=== PATIENT | male | born 1955 | race Caucasian/White ===

== ENCOUNTER → 2020-09-11 11:09 | Outpatient (BNVA) | payer OTHER, MEDICAID, SELFPAY | PROVIDERS: PCP Physician Assistant; Visit Provider Urology | DX: N52.9 Male erectile dysfunction, unspecified (principal); Z79.899 Other long term (current) drug therapy | CPT/HCPCS: Q3014 ==

== ENCOUNTER 2020-09-29 12:31 | Outpatient (REF) | payer OTHER, MEDICAID, SELFPAY | END 2020-09-29 12:32 | disposition home or self-care (01) | LOC: HO.LAB 12:31 | PROVIDERS: Visit Provider Internal Medicine | DX: Z20.828 Contact with and (suspected) exposure to other viral communicable diseases (principal) | CPT/HCPCS: C9803; U0003 ==

== ENCOUNTER → 2020-11-03 11:34 | Outpatient (BNVA) | payer OTHER, MEDICAID, SELFPAY | PROVIDERS: PCP Physician Assistant; Visit Provider Physician Assistant | DX: Z76.89 Persons encountering health services in other specified circumstances (principal) | CPT/HCPCS: Q3014 ==

== ENCOUNTER 2020-12-31 09:08 | Day surgery (SDC) | payer OTHER, SELFPAY ==
[2020-12-26 14:47] VITALS: BMI 24.2
--- NOTE | 2020-12-30 10:20 | HO.ANESPROP2 ---
Documented by User: Iris Good 12/30/20 10:23 HPI - Anesthesia Eval Consult details Narrative: 65yo M for Upper Endoscopy and Colonoscopy PMFSH Active Problems Active Problems: All Active Problems (Updated 12/26/20 @ 14:56 by Liss Ralph) Erectile dysfunction (Acute) Insomnia (Acute) GERD (gastroesophageal reflux disease) (Acute) Lumbar spine pain (Acute) Encounter for screening colonoscopy (Acute) Alcohol dependence (Acute) Past Medical History Medical History Arthritis Back pain Elevated cholesterol GERD (gastroesophageal reflux disease) History of alcohol dependence HTN (hypertension) Surgical History Surgical History H/O colonoscopy Hx of umbilical hernia repair Social History Social History Household Members: Spouse Housing: House Alcohol intake: former Year quit: 2019 Smoking Status: Current some day smoker Tobacco Type: Cigarette Cigarettes Per Day: 15 Years Smoked: 20+ Smoked in Last 30 Days: Yes Use of substances other than those prescribed or required for medical reasons: No Have you been hit, kicked, punched, or otherwise hurt by someone within the past year? If so, by whom?: No Advance Directives Information Provided: No Recently lost weight without trying: No Current occupational status: disabled Current occupation: [employer] Allergies Allergy/AdvReac Type Severity Reaction Status Date / Time No Known Allergies Allergy Verified 12/26/20 14:51 Home Medications Medication Instructions Recorded Confirmed Last Taken Type amlodipine 5 mg tablet 5 mg PO DAILY 09/11/20 Unknown History cefadroxil 1 gram tablet 1 g PO DAILY 09/11/20 Unknown History omeprazole 40 mg capsule,delayed 40 mg PO DAILY 09/11/20 Unknown History release ondansetron 4 mg disintegrating 4 mg SUBLINGUAL Q4-6H 09/11/20 Unknown History tablet sildenafil 100 mg tablet 100 mg PO DAILY PRN 09/11/20 12/26/20 Unknown History Exam Exam Date and Time: December 30, 2020 1020 Height,Weight and Vital Signs: Height 5 ft 9 in Weight 74.389 kg Assessment and Plan Assessment Anesthesia Assessment: Chart Reviewed Documented by User: Sangeetha Carrasco 12/31/20 09:51 PMFSH Past Medical History Medical History Arthritis Back pain Elevated cholesterol GERD (gastroesophageal reflux disease) History of alcohol dependence HTN (hypertension) Surgical History Surgical History H/O colonoscopy Hx of umbilical hernia repair Social History Social History Household Members: Spouse Housing: House Alcohol intake: former Year quit: 2019 Smoking Status: Current some day smoker Tobacco Type: Cigarette Cigarettes Per Day: 15 Years Smoked: 20+ Smoked in Last 30 Days: Yes Use of substances other than those prescribed or required for medical reasons: No Have you been hit, kicked, punched, or otherwise hurt by someone within the past year? If so, by whom?: No Advance Directives Information Provided: No Recently lost weight without trying: No Current occupational status: disabled Current occupation: [employer] Allergies Allergy/AdvReac Type Severity Reaction Status Date / Time No Known Allergies Allergy Verified 12/26/20 14:51 Home Medications Medication Instructions Recorded Confirmed Last Taken Type amlodipine 5 mg tablet 5 mg PO DAILY 09/11/20 Unknown History cefadroxil 1 gram tablet 1 g PO DAILY 09/11/20 Unknown History omeprazole 40 mg capsule,delayed 40 mg PO DAILY 09/11/20 Unknown History release ondansetron 4 mg disintegrating 4 mg SUBLINGUAL Q4-6H 09/11/20 Unknown History tablet sildenafil 100 mg tablet 100 mg PO DAILY PRN 09/11/20 12/26/20 Unknown History Exam Airway Loose/Missing/Broken Teeth: Upper and Lower Heart: RRR Lungs: CTA
[2020-12-31] MEDS: Lactated Ringers 1,000 ML 100 ML IVCONT (09:51)
--- NOTE | 2020-12-31 09:54 | HO.ANESPROP2 ---
[facility] Active Problems Active Problems: All Active Problems (Updated 12/26/20 @ 14:56 by Liss Ralph) Erectile dysfunction (Acute) Insomnia (Acute) GERD (gastroesophageal reflux disease) (Acute) Lumbar spine pain (Acute) Encounter for screening colonoscopy (Acute) Alcohol dependence (Acute) Past Medical History Medical History Arthritis Back pain Elevated cholesterol GERD (gastroesophageal reflux disease) History of alcohol dependence HTN (hypertension) Surgical History Surgical History H/O colonoscopy Hx of umbilical hernia repair Social History Social History Household Members: Spouse Housing: House Alcohol intake: former Year quit: 2019 Smoking Status: Current some day smoker Tobacco Type: Cigarette Cigarettes Per Day: 15 Years Smoked: 20+ Smoked in Last 30 Days: Yes Use of substances other than those prescribed or required for medical reasons: No Have you been hit, kicked, punched, or otherwise hurt by someone within the past year? If so, by whom?: No Advance Directives Information Provided: No Recently lost weight without trying: No Current occupational status: disabled Current occupation: [employer] Allergies Allergy/AdvReac Type Severity Reaction Status Date / Time No Known Allergies Allergy Verified 12/26/20 14:51 Active Medications: Current Medications Generic Name Dose Route Start Last Admin Trade Name Freq PRN Reason Stop Dose Admin Lactated Ringer's 1,000 mls @ 100 mls/hr 12/30/20 10:30 12/31/20 09:51 Lr IVCONT 100 mls/hr .Q10H JUAN Administration Lactated Ringer's 1,000 mls @ 100 mls/hr 12/31/20 09:15 Lr IVCONT .Q10H [facility] Home Medications Medication Instructions Recorded Confirmed Last Taken Type amlodipine 5 mg tablet 5 mg PO DAILY 09/11/20 Unknown History cefadroxil 1 gram tablet 1 g PO DAILY 09/11/20 Unknown History omeprazole 40 mg capsule,delayed 40 mg PO DAILY 09/11/20 Unknown History release ondansetron 4 mg disintegrating 4 mg SUBLINGUAL Q4-6H 09/11/20 Unknown History tablet sildenafil 100 mg tablet 100 mg PO DAILY PRN 09/11/20 12/26/20 Unknown History Exam Exam Date and Time: December 31, 2020 0954 Height,Weight and Vital Signs: Height 5 ft 9 in Weight 74.389 kg Airway Mallampati Class: II TM Dist: >3cm Neck ROM: Full Heart: RRR Lungs: CTA
[2020-12-31 10:07] VITALS: BP 130/79; PULSE 86; RESP 20; TEMP 36.9; O2SAT 98
--- NOTE | 2020-12-31 10:40 | MHC.SHP ---
Pre-Procedural Eval Section B Chief Complaint: reflux disease,screening Relevant Social History: Tobacco Use Present Medications: see Short Stay Collaborative assessment Medical History: Significant History (Arthritis Back pain Elevated cholesterol GERD (gastroesophageal reflux disease) History of alcohol dependence HTN (hypertension)) History of Previous Operations: Relevant previous surgery/procedure and date(s) (umbilical hernia repair) Allergies: Allergies Allergy/AdvReac Type Severity Reaction Status Date / Time No Known Allergies Allergy Verified 12/26/20 14:51 Review of Systems Sugical H&P ROS: Negative: Constitution, Cardiovascular, Respiratory, Neurological, Psychiatric, Hem-Onc, Allergic/Immunologic, Gastrointestinal, Genitourinary, Musculoskeletal, Integumentary, Endocrine and Eyes/Ears/Nose/Throat Exam Surgical H&P Exam: Normal: HEENT, Normal: Heart, Normal: Lungs, Normal: Extremities, Normal: Abdomen, Normal: Skin and Normal: Neurological Plan Diagnosis/Plan: Unchanged I have reviewed the history and physical and performed a pertinent physical examination on my patient. No changes have occurred unless specified.
--- NOTE | 2020-12-31 11:09 | PM.OP ---
Brief Operative Note Date of Service: 12/31/20 Pre-op diagnosis: gerd, colon screening Post-op diagnosis: same Procedure: see op note Surgeon: Chiquis Molina MD Anesthesia: MAC Estimated blood loss (mL): 0 Condition: stable Disposition: PACU
--- NOTE | 2020-12-31 11:10 | P.OP_ITS ---
Operative Note Operative Note Date of Service: 12/31/20 Narrative: Operative Information Procedure Description: EGD, Colonoscopy FLEXIBLE TRANSORAL UPPER GASTROINTESTINAL ENDOSCOPY AND COLONOSCOPY PROCEDURE NOTE UPPER ENDOSCOPY Consent: Indications for the procedure and potential complications of bleeding, perforation, reaction to medications and missed diagnosis were discussed with the patient and informed consent was obtained. Instrument: Olympus GIF H 190 J mid size upper endoscope Monitoring: Vital signs and clinical assessment, continuous EKG monitoring, Pulse oximetry, Carbon Dioxide monitoring and blood pressure monitoring were done throughout the procedure. Procedure: The patient was placed in the left lateral decubitis position and pre-procedure medications were administered and a bite block was placed. The endoscope was inserted into the mouth and advanced under direct vision to the third part of duodenum. A careful inspection was made as the upper endoscope was withdrawn including a retroflexed examination of the proximal stomach; Findings and interventions are described below. Findings: Larynx:normal Esophagus: GE junction at 40 cm, diaphragm hiatus at 42 cm, irregular GEJ--bx taken to r/o barretts-proximal esophagus with inlet patch about 8-10 mm in diameter Stomach: patchy erythema. Biopsies were obtained. Grade 2 flap valve on retroflexed examination of the cardia. Duodenum: Normal bulb and descending duodenum, Intervention: Biopsies as noted above COLONOSCOPY Instrument: Olympus variable stiffness pediatric scope 190L Colonoscopy Monitoring: Vital signs and clinical assessment, continuous EKG monitoring, Pulse oximetry, Carbon Dioxide monitoring and blood pressure monitoring were done throughout the procedure. Colon withdrawal time was 15 minutes. Procedure: The patient was placed in the left lateral decubitis position and pre-procedure medications were administered. After a digital rectal examination of the ano-rectum, the video colonoscope was inserted into the rectum and advanced through the colon to the cecum/TI. The colonoscope was slowly withdrawn in a retrograde panoramic fashion and the colon mucosa was carefully examined including a retroflexed view of the rectum. Findings and interventions are described below. Procedure Difficulty:easy Findings: Terminal Ileum-normal Cecum:normal Ascending Colon: normal Transverse Colon -normal Descending Colon:normal Sigmoid Colon: normal Rectum: Retroflexion with moderate sized internal hemorrhoids, grade I Anorectum - normal Colon preparation: [place] Bowel Preparation Scale Right colon; 3 Transverse colon: 3 Left colon; 3 (0 = Unprepared colon segment with mucosa not seen due to solid stool that cannot be cleared. 1 = Portion of mucosa of the colon segment seen, but other areas of the colon segment not well seen due to staining, residual stool and/or opaque liquid. 2 = Minor amount of residual staining, small fragments of stool and/or opaque liquid, but mucosa of colon segment seen well. 3 = Entire mucosa of colon segment seen well with no residual staining, small fragments of stool or opaque liquid) Impression and Post Procedure Diagnosis: Endoscopy Findings: gastritis hiatal henria esophageal inlet patch Colonoscopy Findings: internal hemorrhoids Plan: Await Pathology results Repeat Colonoscopy in 10 years or earlier if clinically indicated High fiber diet leaflet avoid straining at stool, epsom salts and sitz bath, anusol supps or cream as needed Above findings were reviewed with the patient and relevant handouts were provided if indicated.
[2020-12-31 11:33] VITALS: BP 91/54; PULSE 78; RESP 20; TEMP 36.2; O2SAT 99
--- NOTE | 2020-12-31 11:45 | HO.POSTANES ---
Post Anesthesia Evaluation Post Anesthesia Evaluation Vital Signs: Vital Signs Temp Pulse Resp BP Pulse Ox 12/31/20 11:33 97.1 F 78 20 91/54 L 99 12/31/20 10:07 98.4 F 86 20 130/79 98 Anesthesia: Monitored Mental Status: Awake Pain Control: Satisfactory Nausea/Vomiting: None Hydration: Adequate Anesthesia-Related Issues: No Anes. Related Issues
[2020-12-31 11:48] VITALS: BP 104/66; PULSE 82; RESP 17; TEMP 36.2; O2SAT 98
== END 2020-12-31 13:19 | disposition home or self-care (01) ==
PROVIDERS: PCP Physician Assistant; Visit Provider Internal Medicine Gastroenterology
PROC: (CPT 43239; principal; 2020-12-31 10:00)
DX: Z12.11 Encounter for screening for malignant neoplasm of colon (principal); K64.0 First degree hemorrhoids; K21.9 Gastro-esophageal reflux disease without esophagitis; K29.50 Unspecified chronic gastritis without bleeding; K44.9 Diaphragmatic hernia without obstruction or gangrene; Q39.8 Other congenital malformations of esophagus; I10 Essential (primary) hypertension; F10.21 Alcohol dependence, in remission; F17.210 Nicotine dependence, cigarettes, uncomplicated; Z79.899 Other long term (current) drug therapy
CPT/HCPCS: 43239; G0121; 88305; 88342

== ENCOUNTER → 2021-01-07 12:34 | Outpatient (BNVA) | payer OTHER, SELFPAY | PROVIDERS: Visit Provider Physician Assistant | DX: Z13.89 Encounter for screening for other disorder (principal) | CPT/HCPCS: Q3014 ==

== ENCOUNTER → 2021-01-12 10:38 | Outpatient (BNVA) | payer OTHER, SELFPAY | PROVIDERS: Visit Provider Physician Assistant | DX: Z13.89 Encounter for screening for other disorder (principal) | CPT/HCPCS: Q3014 ==

== ENCOUNTER 2021-01-14 09:43 | Outpatient (REF) | payer OTHER, SELFPAY ==
[2021-01-14 10:49] LABS: Hematocrit 41.1 % (42-52); Mean Corpuscular HGB Conc 34.1 g/dl (31.0-36.0); Mean Corpuscular Hemoglobin 26.6 pg (27.0-33.0); Mean Platelet Volume 10.3 fL (9.4-12.4); Platelet Count 285 X10*3/uL (160-400); Red Blood Count 5.27 X10*6/uL (4.60-5.80); White Blood Count 6.3 X10*3/uL (4.8-10.8)
[2021-01-14 10:58] LABS: Estimated Average Glucose 97 mg/dL
[2021-01-14 11:27] LABS: Alanine Aminotransferase 24 U/L (0-40); Albumin Level 4.6 g/dL (3.5-5.0); Alkaline Phosphatase 93 U/L (39-117); Anion Gap 13 (12-20); Aspartate Amino Transferase 27 U/L (5-37); Bilirubin Total 1.1 mg/dL (0.0-1.0); Blood Urea Nitrogen 15 mg/dL (9-16); Calcium 9.2 mg/dL (8.4-10.2); Carbon Dioxide 27 mmol/L (22-29); Chloride 105 mmol/L (96-108); Cholesterol 156 mg/dL; Estimated Glomerular Filt Rate > 60; Glucose Fasting 93 mg/dL (60-99); HDL Cholesterol 55 mg/dL; LDL Cholesterol Calculated 86 mg/dl; Potassium 4.2 mmol/L (3.3-5.1); Sodium 141 mmol/L (135-145); Total Protein 7.6 g/dL (6.5-8.0); Triglycerides 78 mg/dL
[2021-01-14 11:37] LABS: Prostate Specific Antigen Scr 0.45 ng/mL (<0.05-4.0); TSH reflex Free T4 0.36 uIU/mL (0.32-4.0)
== END 2021-01-14 09:44 | disposition home or self-care (01) ==
LOC: HO.LAB 09:43
PROVIDERS: PCP Physician Assistant; Visit Provider Physician Assistant
DX: Z12.5 Encounter for screening for malignant neoplasm of prostate (principal); I10 Essential (primary) hypertension; E78.2 Mixed hyperlipidemia
CPT/HCPCS: 36415; 80053; 80061; 83036; 84153; 84443; 85027

== ENCOUNTER → 2021-07-10 09:32 | Outpatient (BNVA) | payer OTHER, SELFPAY | PROVIDERS: Visit Provider Urology | DX: N52.8 Other male erectile dysfunction (principal) | CPT/HCPCS: Q3014 ==

== ENCOUNTER 2021-08-20 09:35 | Outpatient (REF) | payer OTHER, SELFPAY ==
[2021-08-20 10:17] LABS: Hematocrit 38.8 % (42-52); Hemoglobin 13.7 g/dl (14.0-18.0); Mean Corpuscular HGB Conc 35.3 g/dl (31.0-36.0); Mean Corpuscular Hemoglobin 27.7 pg (27.0-33.0); Mean Corpuscular Volume 78.4 fL (80-98); Mean Platelet Volume 10.2 fL (9.4-12.4); Platelet Count 240 X10*3/uL (160-400); Red Blood Count 4.95 X10*6/uL (4.60-5.80); Red Cell Distribution Width 13.9 % (11.0-16.0); White Blood Count 7.5 X10*3/uL (4.8-10.8)
[2021-08-20 11:00] LABS: Prostate Specific Antigen Scr 0.48 ng/mL (<0.05-4.0); TSH reflex Free T4 0.38 uIU/mL (0.32-4.0)
[2021-08-20 11:03] LABS: Alanine Aminotransferase 16 U/L (0-40); Albumin Level 4.3 g/dL (3.5-5.0); Alkaline Phosphatase 69 U/L (39-117); Anion Gap 9 (12-20); Aspartate Amino Transferase 22 U/L (5-37); Bilirubin Total 0.8 mg/dL (0.0-1.0); Blood Urea Nitrogen 9 mg/dL (9-16); Calcium 9.1 mg/dL (8.4-10.2); Carbon Dioxide 29 mmol/L (22-29); Chloride 106 mmol/L (96-108); Cholesterol 161 mg/dL; Estimated Glomerular Filt Rate > 60; Glucose Fasting 82 mg/dL (60-99); HDL Cholesterol 67 mg/dL; LDL Cholesterol Calculated 80 mg/dl; Potassium 3.9 mmol/L (3.3-5.1); Sodium 140 mmol/L (135-145); Total Protein 7.1 g/dL (6.5-8.0); Triglycerides 72 mg/dL
[2021-08-20 11:36] LABS: Microalbum/Creatinine Ratio Ur 4.3 ug/mg cr
== END 2021-08-20 09:36 | disposition home or self-care (01) ==
LOC: HO.LAB 09:35
PROVIDERS: PCP Physician Assistant; Visit Provider Physician Assistant
DX: Z12.5 Encounter for screening for malignant neoplasm of prostate (principal); I10 Essential (primary) hypertension
CPT/HCPCS: 36415; 80053; 80061; 82043; 84153; 84443; 85027

== ENCOUNTER → 2021-10-09 08:32 | Outpatient (BNVA) | payer OTHER, SELFPAY | PROVIDERS: Visit Provider Urology | DX: N52.8 Other male erectile dysfunction (principal) | CPT/HCPCS: Q3014 ==

== ENCOUNTER → 2022-04-15 08:21 | Outpatient (BNVA) | payer OTHER, SELFPAY | PROVIDERS: PCP Physician Assistant; Visit Provider Urology | DX: N52.8 Other male erectile dysfunction (principal); Z79.899 Other long term (current) drug therapy | CPT/HCPCS: Q3014 ==

== ENCOUNTER 2023-12-14 13:25 | Outpatient (AMB) | payer OTHER, SELFPAY ==
[2023-12-14 13:28] VITALS: BP 136/86; PULSE 100; RESP 17; O2SAT 97; BMI 22.9
--- NOTE | 2023-12-14 13:28 | A.OFFPC_ITS ---
Vital Signs 3 12/14/23 13:28 Height 5 ft 9 in Weight 155 lb 6 oz BMI 22.9 BP 136/86 Blood Pressure Location Lt brachial Position Sitting Respiration 17 Pulse 100 Pulse Source Pulse Oximeter Pulse Oximetry (%) 97 Oxygen Delivery Method Room Air Intake Visit Reasons: [facility] 12/09- Due to Having Falls & Blacking Out. Intake Note: Patient is here to follow-up after a visit the emergency department at [facility] ED on 12/09/23 due to Bilateral orbital, zygomatic, mandibular, nasal Fx due to a Fall and blacking out. Needs suture removal and an referal to the oral Maxillofacial surgeon, Ophthalmology and ENT specialists. Le[employer] Machine Operator Required: No Accompanied by: Self / Same As Patient Allergies No Known Allergies Allergy (Verified 12/14/23 14:00) Medication List - Last Reconciled 12/14/23 by Ousmane Iverson PA-C acetaminophen 1,000 mg PO Q6H PRN amlodipine 10 mg PO DAILY 90 days amoxicillin-pot clavulanate 875-125 mg 1 tab PO BID baclofen 20 mg PO TID cane As directed gabapentin 600 mg PO BID 90 days hydrocortisone 2.5% (Proctozone-HC) 1 appl MT BID PRN hydroxyzine pamoate 25 mg PO BID melatonin 5 mg PO BEDTIME meloxicam 15 mg PO DAILY methylcellulose (laxative) (Citrucel) 500 mg PO BID naltrexone 50 mg PO DAILY 15 days nicotine (polacrilex) mg PO omeprazole 40 mg PO DAILY oxycodone 5 mg PO Q6H PRN pravastatin 20 mg PO DAILY 90 days sertraline 25 mg PO DAILY sildenafil 100 mg PO DAILY PRN 30 days trazodone 50 mg PO BEDTIME Tobacco use date assessed: 12/14/23 Fall risk assessment: 1 Fall in past year (Blocked out.) Last assessed Fall Risk: 12/14/23 Dental Screening Dental Screen Date: 12/14/23 Did you have a dental visit in the last 12 months?: Yes Did you have a dental problem in the last 6 months where you did not have access to dental care?: No Was dental information given to patient?: Patient has dentist HPI [facility] 12/09- Due to Having Falls & Blacking Out. 2 HPI0 Details ?Patient is a 68-year-old male Here today for a hospital discharge follow-up.? Patient has a past medical history significant essential hypertension, erectile dysfunction, spondylosis of lumbar spine, history of alcohol abuse. Patient reports he has stopped taking all of his meds including his mental health and blood pressure medication. This may have led to his syncopal episodes. He reports he has had a few episodes of blacking out and falling. His last episode he blacked out and fell face forward lacerating his chin and resulting in orbital, mandible and nasal bone fractures. He was seen at the [facility] ER and received 8 sutures in his chin. CT of head neck without any acute fractures or bleeds. CT of facial bone showing the previously stated fractures. He reports he has been on liquid diet over the last week and has been making improvements. He feels he would like to start eating solid foods again. Advised on maxillofacial and ophthalmologic evaluation though patient declines at this time. 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 Cognitive needs: No Hearing needs: No Vision needs: No Questionnaire PHQ-9 Over the last 2 weeks, how often have you been bothered by any of the following problems? 1. Little interest or pleasure in doing things: more than half the days 2. Feeling down, depressed, or hopeless: nearly every day 3. Trouble falling or staying asleep, or sleeping too much: nearly every day 4. Feeling tired or having little energy: several days 5. Poor appetite or overeating: nearly every day 6. Feeling bad about yourself - or that you are a failure or have let yourself or your family down: nearly every day 7. Trouble concentrating on things, such as reading the newspaper or watching television: several days 8. Moving or speaking so slowly that other people could have noticed. Or the opposite - being so fidgety or restless that you have been moving around a lot more than usual: nearly every day 9. Thoughts that you would be better off or of hurting yourself in some way: several days Total score: 20 Depression Screening Interpretation: Positive Depression Screening Follow-up: Existing condition and New Medication prescribed Depression Screening Done: Yes 40019 - PHQ-9 Billing: Yes Source: Developed by Drs. Sree Donahue, Annie Simons, Jonathan Myers and colleagues, with an educational benny from [employer]. Thrive Questionnaire Date Thrive assessed: 12/14/23 I am a: Patient What is your living situation today?: I have a steady place to live Within the past 12 months, did the food you bought not last and you didn't have the money to get more?: Never true Within the past 12 months, did you worry whether your food would run out before you got money to buy more?: Never true Do you have trouble paying for medicines?: Yes Do you have trouble getting transportation to medical appointments?: Yes Do you have trouble paying your heating and electricity bill?: No Do you have trouble taking care of your child, family member or friend?: No Do you have trouble with day-to-day activities such as bathing, preparing meals, shopping, managing finances, etc.?: No Are you currently unemployed and looking for a job?: No Are you interested in more education?: No Please select the resources that you would like help with: None Currently or been in a relationship where the following occur: no concerns reported THRIVE Score: 1 AUDIT C Alcohol Use Questionnaire (AUDIT-C) 1. How often do you have a drink containing alcohol?: Never 3. How often do you have six or more drinks on one occasion?: Never Total Score: 0 ALVARO-7 AMB Questionnaire ALVARO-7 Date ALVARO - 7 assessed: 12/14/23 Feeling nervous, anxious, or on edge: 3 = Nearly every day Not being able to stop or control worryin = Nearly every day Worrying too much about different things: 3 = Nearly every day Trouble relaxin = Nearly every day Being so restless that it is hard to sit still: 3 = Nearly every day Becoming easily annoyed or irritable: 3 = Nearly every day Feeling afraid as if something awful might happen: 3 = Nearly every day Total ALVARO-7 score (0-4 normal; 5-9 mild; 10-14 moderate; 15-21 severe): 21 Source: Developed by Drs. Sree Donahue, Annie Simons, Jonathan Myers and colleagues, with an educational benny from [employer]. ALVARO-7 Assessment Billing ALVARO-7 Assessment Tool: ALVARO-7 Assessment 34295 Review of Systems Const Denies headache(s) Eyes Denies loss of vision ENT Denies vertigo, Denies dizziness, Denies headache(s) and Denies sore throat Card Denies chest pain, Denies leg edema and Denies lightheadedness Resp Denies cough, Denies hemoptysis and Denies wheezing GI Denies abdominal pain, Denies melena, Denies constipation, Denies diarrhea and Denies vomiting Denies dysuria, Denies urinary frequency and Denies urinary urgency Musc Denies arthralgias, Denies joint swelling, Denies numbness and Denies tingling Neuro Denies Abnormal speech present, Denies behavioral changes, Denies vertigo, Denies dizziness, Denies headache(s), Denies loss of vision, Denies memory loss, Denies numbness and Denies tingling Psych Denies anxiety, Denies behavioral changes, Denies depression, Denies memory loss and Denies panic attacks Da/Lymph Denies easy bleeding and Denies easy bruising Aller/Immun Denies wheezing Physical exam (Primary Care) Vital Signs: Last Vital Signs Pulse 100 12/14/23 13:28 Resp 17 12/14/23 13:28 BP 136/86 12/14/23 13:28 Pulse Ox 97 12/14/23 13:28 Oxygen Delivery Method Room Air 12/14/23 13:28 BMI result Body Mass Index 22.9 Tobacco/Smoking Status: Tobacco use Status Tobacco use date assessed 12/14/23 12/14/23 13:40 Patient Tobacco Use Status Current someday Tobacco 12/14/23 13:29 Tobacco use type Cigarette 12/14/23 13:29 e-Cigarette/Vaping Use Never Used 12/14/23 13:29 PHQ-9: PHQ-9 Score PHQ-9: Total score 20 12/14/23 14:04 Depression Screening Interpretation: Positive Depression Screening Follow-up: Existing condition and New Medication prescribed Thrive Assessment: Date of Thrive Assessment Date Thrive assessed 12/14/23 12/14/23 13:40 Currently or been in a relationship where the following occur: no concerns reported Const General: healthy appearing, no acute distress, alert and awake Nutritional Appearance: well nourished Orientation/consciousness: oriented to person, oriented to place and oriented to time HENMT Other: SOME LIPID MOTION OF THE JAW THOUGH PER PATIENT IT IS MUCH BETTER. Ears: TM's normal bilaterally General nose exam: Normal nasal mucous membranes and turbinates present Nose image: 2 1. HEALING ABRASION OVER NOSE Face images: 2 1. LACERATION IN THE AREA OUTLINED WITH A IN PLACE SUTURES. ALL 8 SUTURES REMOVED TODAY WITHOUT ANY RECURRENT IMAGING. Eyes Conjunctivae: conjunctivae normal Sclerae: sclerae normal Pupils: Equal, round and reactive pupils present Neck Neck: Yes no lymphadenopathy and Yes no JVD Thyroid: Thyroid normal Carotids: no bruits Resp Effort & Inspection: normal respiratory effort and not tachypneic Auscultation: no crackles, no rales, no rhonchi and no wheezes Cardio Rate: regular rate Rhythm: regular rhythm Heart sounds: no murmurs and normal S1 and S2 GI Palpation (GI): Soft to palpation, nontender, no hepatomegaly and no splenomegaly Auscultation: normal bowel sounds Skin General skin exam: no rashes or lesions noted and dry skin Neuro General: oriented to person, oriented to place and oriented to time Cranial nerves: Yes Equal, round and reactive pupils present Speech: No Abnormal speech present Gait exam (Neuro): Normal gait present Motor exam (neuro): no tremor noted Extrem Right upper extremity: full ROM Left upper extremity: full ROM Right lower extremity: full ROM; no edema Left lower extremity: full ROM; no edema Psych Mental Status: mental status grossly normal Speech and movement: Normal speech and movement present Affect: normal affect Attitude: cooperative Thought process: Normal thought process present Assessment and Plan Assessment & Plan (1) Syncope and collapse: Code(s): R55 - Syncope and collapse Plan: Unclear etiology to patient's syncopal episodes. While hospitalized at [facility] he reports getting EKG and labs without any significant findings. Before his syncopal episodes he had completely stopped taking all of his medications including his psychiatric and blood pressure medications which could be the cause of his syncopal episodes. Will send for EEG and transthoracic echocardiogram do evaluate for a intracranial or cardiac structural abnormality leading to his syncope. (2) HTN (hypertension): Code(s): I10 - Essential (primary) hypertension Qualifiers: Hypertension type: essential hypertension Qualified Code(s): I10 - Essential (primary) hypertension Plan: Patient's blood pressure acceptable today in office. He would like to restart his blood pressure medication as he is self discontinued them recently. (3) HLD (hyperlipidemia): Code(s): E78.5 - Hyperlipidemia, unspecified Qualifiers: Hyperlipidemia type: mixed hyperlipidemia Qualified Code(s): E78.2 - Mixed hyperlipidemia Plan: Will restart cholesterol medication. Will put in order for fasting labs to evaluate fasting lipid panel. Goal LDL to be below 130 (4) Alcohol dependence: Code(s): F10.20 - Alcohol dependence, uncomplicated Qualifiers: Substance use status: uncomplicated Qualified Code(s): F10.20 - Alcohol dependence, uncomplicated Plan: Does have history of alcohol dependency that has been remission over the last 3 years, he does admit to recently drinking a few beers during the week. He has been often naltrexone as he self discontinued. He is interested in restarting naltrexone to help him with his alcohol cravings. (5) MDD (major depressive disorder), recurrent episode, moderate: Code(s): F33.1 - Major depressive disorder, recurrent, moderate Plan: Patient's PHQ-9 score positive for depression which has been existing condition for him. He has not interested in speaking with a mental health therapist. He is interested in restarting sertraline (6) ALVARO (generalized anxiety disorder): Code(s): F41.1 - Generalized anxiety disorder Plan: Patient's ALVARO-7 score positive for anxiety which has been existing condition for him. Again interested in a mental health therapist at this time though would like to restart SSRI therapy. (7) Mandibular fracture: Code(s): S02.609A - Fracture of mandible, unspecified, initial encounter for closed fracture Qualifiers: Encounter type: subsequent encounter Fracture type: closed Laterality: unspecified laterality Fracture healing: with routine healing Mandible location: angle Qualified Code(s): S02.650D - Fracture of angle of mandible, unspecified side, subsequent encounter for fracture with routine healing Plan: Status post fall. Has been on liquid diet, reports he can open his jaw much better. He would like to start eating solids again. Advised on maxillofacial surgeon evaluation though patient declines. Orders: Orders 2 Prostate Specific Antigen Scr 12/14/23 I10 - Essential (primary) hypertension, Z12.5 - Encounter for screening for malignant neoplasm of prostate Microalbumin, Random (w Creat) 12/14/23 I10 - Essential (primary) hypertension Comprehensive [place]. Panel Fast 12/14/23 I10 - Essential (primary) hypertension Lipid Panel 12/14/23 E78.2 - Mixed hyperlipidemia CA echo transthoracic complete 12/14/23 R55 - Syncope and collapse EEG electroencephalogram 12/14/23 R55 - Syncope and collapse XR facial bones min 3V Today S02.650D - Fracture of angle of mandible, unspecified side, subsequent encounter for fracture with routine healing Medications: Changed 2 From naltrexone 50 mg PO DAILY 15 days 15 tabs 0RF F10.20 - Alcohol dependence, uncomplicated To naltrexone 50 mg PO DAILY 90 days 90 tabs 1RF F10.20 - Alcohol dependence, uncomplicated From sertraline 25 mg PO DAILY F41.1 - Generalized anxiety disorder To sertraline 25 mg PO DAILY 90 days 90 tabs 1RF F41.1 - Generalized anxiety disorder From nicotine (polacrilex) PO F17.200 - Nicotine dependence, unspecified, uncomplicated To nicotine (polacrilex) 4 mg PO Q4H 30 days PRN 110 ea 0RF nicotine cravings F17.200 - Nicotine dependence, unspecified, uncomplicated Refilled 2 amlodipine 10 mg PO DAILY 90 days 90 tabs 2RF I10 - Essential (primary) hypertension baclofen 20 mg PO TID 84 tabs 3RF M54.5 - Low back pain pravastatin 20 mg PO DAILY 90 days 90 tabs 2RF E78.2 - Mixed hyperlipidemia sildenafil administer 30 minutes to 4 hours before activity 100 mg PO DAILY 30 days PRN 30 tabs 5RF sexual activity N52.8 - Other male erectile dysfunction gabapentin 600 mg PO BID 90 days 180 tabs 3RF M54.5 - Low back pain melatonin 5 mg PO BEDTIME 28 tabs 6RF G47.00 - Insomnia, unspecified meloxicam 15 mg PO DAILY 28 tabs 3RF omeprazole 40 mg PO DAILY 90 caps 1RF K21.9 - Gastro-esophageal reflux disease without esophagitis Coding Level of Care Code Est Pt Level 4 (89150) Diagnoses Syncope and collapse R55 Essential hypertension I10 Hypertension type: essential hypertension Mixed hyperlipidemia E78.2 Hyperlipidemia type: mixed hyperlipidemia Uncomplicated alcohol dependence F10.20 Substance use status: uncomplicated MDD (major depressive disorder), recurrent episode, moderate F33.1 ALVARO (generalized anxiety disorder) F41.1 Closed fracture of angle of mandible with routine healing, unspecified laterality, subsequent encounter S02.650D Encounter type: subsequent encounter Fracture type: closed Laterality: unspecified laterality Fracture healing: with routine healing Mandible location: angle Additional Codes ALVARO-7 Assessment Billing - ALVARO-7 Assessment Tool: ALVARO-7 Assessment 60801 ([id number])
== END 2023-12-14 14:40 | disposition home or self-care (01) ==
PROVIDERS: PCP Physician Assistant; Visit Provider Physician Assistant
DX: R55 Syncope and collapse (principal); F10.20 Alcohol dependence, uncomplicated; F33.1 Major depressive disorder, recurrent, moderate; I10 Essential (primary) hypertension; E78.2 Mixed hyperlipidemia; F41.1 Generalized anxiety disorder; S02.6 Fracture of mandible
CPT/HCPCS: 96127; 99214

== ENCOUNTER 2023-12-27 12:41 | Outpatient (REF) | payer OTHER, SELFPAY ==
--- NOTE | 2023-12-27 13:02 | EEG_ITS ---
FINDINGS: The waking background activity consists of well defined moderate voltage 9 hertz posterior alpha frequency that is seen symmetrically and attenuates well with eye opening while low voltage fast frequencies predominate anteriorly. Photic stimulation is without activation. Hyperventilation was omitted. No sleep stages are identified. No focal, lateralizing, or paroxysmal discharges are seen. IMPRESSION: This waking EEG is within normal limits. MD JEFFERY Emmanuel/EMI / [id number]
[2023-12-27 14:50] LABS: Prostate Specific Antigen Scr 2.04 ng/mL (<0.05-4.0)
[2023-12-27 14:54] LABS: Alanine Aminotransferase 24 U/L (0-40); Albumin Level 4.5 g/dL (3.5-5.0); Alkaline Phosphatase 102 U/L (39-117); Anion Gap 9 (12-20); Aspartate Amino Transferase 19 U/L (5-37); Bilirubin Total 0.4 mg/dL (0.0-1.0); Blood Urea Nitrogen 10 mg/dL (9-16); Calcium 9.3 mg/dL (8.4-10.2); Carbon Dioxide 30 mmol/L (22-29); Chloride 103 mmol/L (96-108); Cholesterol 153 mg/dL (<200); Estimated Glomerular Filt Rate > 60; Glucose Fasting 88 mg/dL (60-99); HDL Cholesterol 57 mg/dL (>40); LDL Cholesterol Calculated 67 mg/dL (<100); Potassium 3.8 mmol/L (3.3-5.1); Sodium 138 mmol/L (135-145); Total Protein 7.9 g/dL (6.5-8.0); Triglycerides 146 mg/dL (<150)
[2023-12-27 15:00] LABS: Creatinine Urine 220.35 mg/dL; Microalbum/Creatinine Ratio Ur 6.3 ug/mg cr (<30)
== END 2023-12-27 12:42 | disposition home or self-care (01) ==
LOC: HO.NEURO 12:41
PROVIDERS: PCP Physician Assistant; Visit Provider Physician Assistant
DX: Z12.5 Encounter for screening for malignant neoplasm of prostate (principal); R55 Syncope and collapse; I10 Essential (primary) hypertension; E78.2 Mixed hyperlipidemia
CPT/HCPCS: 36415; 80053; 80061; 82043; 82570; 84153; 95816

== ENCOUNTER → 2024-01-06 13:01 | Outpatient (REF) | payer OTHER, SELFPAY ==
--- NOTE | 2024-01-06 13:04 | CA_ITS ---
Transthoracic Echocardiogram Patient (Last, First, Middle): Alexandro Pan, Gender: Male Date of : 1955 Age: 68 Procedure Date: 01/06/2024 Procedure Type: Transthoracic Echocardiogram Location: OP Height: 175.26 cm Weight: 72.58 kg BSA: 1.88 m2 Heart Rate: bpm BP: 120 / 72 mmHg Database Report Writer: TO Referring MD: Ousmane Iverson PA-C [employer] Operator: Juan J Hdez MD Symptoms: R55 - Syncope and collapse Study Quality: Adequate ECG Rhythm: Sinus Conclusions: - 1. Mildly reduced LV ejection fraction 45-50% with impaired relaxation filling pattern 2. Normal cardiac valvular Doppler 3. Normal RV systolic pressure 4. Mildly dilated ascending aorta at sinus of Valsalva 5. No gross pericardial effusion Findings Left Ventricle Normal left ventricular cavity size. There is normal left ventricular wall thickness. The left ventricular systolic function is mildly decreased. The visually estimated ejection fraction is between 45-50%. Spectral Doppler is indicative of an impaired relaxation filling pattern. E/E prime ratio is between 8 and 15 consistent with indeterminate filling pressures. Definity not given due to unstable mental status. Peak GLS is -14.3%, moderately reduced. Wall Motion Rest Echo Findings The basal inferolateral segment is hypokinetic. All other scored wall segments showed normal motion. Right Ventricle Normal right ventricular cavity size and systolic function. Atria Both atria are normal in size. Aortic Valve Normal aortic valve structure and function. There is no aortic valve stenosis. There is no aortic valve regurgitation. Mitral Valve Normal mitral valve structure and function. There is trace mitral valve regurgitation. There is no mitral valve stenosis. Pulmonic Valve The pulmonic valve is likely normal. Tricuspid Valve Normal tricuspid valve structure. There is trace tricuspid valve regurgitation. The right ventricular systolic pressure is normal. The right ventricular systolic pressure is 17 mmHg. Normal right atrial pressure. There is no evidence of pulmonary hypertension. Great Vessels The pulmonary artery was not well visualized. There is mild dilatation of the sinuses of Valsalva measuring 3.98 cm. Venous The inferior vena cava is normal in size and collapses greater than 50% with inspiration. Pericardium/Pleural There is no evidence of pericardial effusion. Prior Study Comparison No prior study available for comparison. Measurements 2D Linear Measurements IVSd: 1.24 0.6-0.9/0.6-1.0 cm LVIDd: 4.96 3.9-5.3/4.2-5.9 cm LVIDd Index: 2.64 2.4-3.2/2.2-3.1 cm/m2 LVIDs: 3.68 2.0-3.6 cm LVPWd: 0.85 0.7-1.1 cm LA Diam: 2.90 2.7-3.8/3.0-4.0 cm LAIDs Index: 1.54 1.5-2.3 cm/m2 LV Mass: 237.82 67-162/88-224 g LV Mass Index: 126.50 43-95/49-115 g/m2 LVOT Diam: 2.40 3.0+(-)1.3 cm 2D Systolic Function EF 4C: 52.50 >55% EF 2C: 42.40 >55% EF BiP: 49.40 >55% Mitral Valve MV Pk E: 0.55 MV PK A: 0.88 MV Decel Time: 197.00 E/A: 0.60 E'Lateral: 5.00 E'Medial: 5.55 E/E' Med: 10.00 E/E' Lat: 11.10 PHT: 58.00 MVA PHT: 3.79 Decel [place]: 2.81 Aortic Valve AoV Pk Mookie: 1.31 AoV Mn Mookie: 0.92 AoV VTI: 0.24 AoV Pk Grad: 7.00 Aov Mn Grad: 4.00 SUNIL Cont.VTI: 3.23 LVOT LVOT Pk Mookie: 0.80 LVOT Mn Mookie: 0.57 LVOT VTI: 0.17 LVOT Pk Grad: 3.00 LVOT Mn Grad: 1.00 LVOT Diam: 2.40 LVOT Area: 4.52 Diastolic Function MV Pk E: 0.55 MV Pk A: 0.88 E/A: 0.60 E'Medial: 5.55 E/E' Med: 10.00 E' Laterial: 5.00 E/E' Lat: 11.10 Right Ventricle TAPSE (mm): 24.80 TVS' Mookie: 13.50 Tricuspid Valve TR Pk Mookie: 1.89 TR Pk Grad: 14.00 RA Press: 3.00 RVSP: 17.00 Great Vessels Aorta Sinus of Valsalva: 3.98 2.0-3.5 cm Updated in Other Vendor System with Status of Final Juan J Hdez MD electronically signed on 01/07/2024 1:10:44 PM with status of Final
== END ==
LOC: HO.CARD 13:01
PROVIDERS: PCP Physician Assistant; Visit Provider Physician Assistant
DX: R55 Syncope and collapse (principal)
CPT/HCPCS: 93306; 93356

== ENCOUNTER → 2024-01-06 13:04 | Outpatient (BNV) | payer OTHER, SELFPAY | PROVIDERS: PCP Physician Assistant; Visit Provider Internal Medicine Cardiovascular Disease | DX: R55 Syncope and collapse (principal); R93.1 Abnormal findings on diagnostic imaging of heart and coronary circulation | CPT/HCPCS: 93306; 93356 ==

== ENCOUNTER 2024-01-12 10:07 | Outpatient (AMB) | payer OTHER, SELFPAY ==
--- NOTE | 2024-01-12 10:16 | A.OFFPC_ITS ---
Vital Signs 01/12/24 10:26 Height 5 ft 9 in Weight 147 lb 6 oz BMI 21.8 BP 117/72 Blood Pressure Location Lt brachial Position Sitting Pulse 88 Pulse Source Pulse Oximeter Pulse Oximetry (%) 98 Oxygen Delivery Method Room Air Intake Visit Reasons: f/u HTN/ lab follow up. Intake Note: Patient is here today for a physical. Compensation Analyst Required: No Accompanied by: Self / Same As Patient Allergies No Known Allergies Allergy (Verified 01/12/24 10:40) Medication List - Last Reconciled 01/12/24 by Ousmane Iverson PA-C acetaminophen 1,000 mg PO Q6H PRN amlodipine 10 mg PO DAILY 90 days baclofen 20 mg PO TID cane As directed gabapentin 600 mg PO BID 90 days hydrocortisone 2.5% (Proctozone-HC) 1 appl [place] BID PRN melatonin 5 mg PO BEDTIME meloxicam 15 mg PO DAILY methylcellulose (laxative) (Citrucel) 500 mg PO BID naltrexone 50 mg PO DAILY 90 days nicotine (polacrilex) 4 mg PO Q4H PRN 30 days omeprazole 40 mg PO DAILY oxycodone 5 mg PO Q6H PRN pravastatin 20 mg PO DAILY 90 days sertraline 25 mg PO DAILY 90 days sildenafil 100 mg PO DAILY PRN 30 days Tobacco use date assessed: 12/14/23 Fall risk assessment: No Falls in past year Last assessed Fall Risk: 01/12/24 Dental Screening Dental Screen Date: 01/12/24 HPI f/u HTN/ lab follow up. HPI Details ?Patient is a 68-year-old male Here today for a routine annual physical.? Patient has a past medical history significant essential hy pertension, erectile dysfunction, spondylosis of lumbar spine, history of alcohol abuse. Recently recovered from mandible fracture secondary to trauma injury from fall. Will send for EMG testing, echocardiogram which were unremarkable. His falls were in the setting of stopping all of his medications. ? .. ? HTN: Has been compliant with his blood pressure medications, has not been monitoring blood pressures at home due to his busy lifestyle.. ? Patient denies any chest discomfort, headaches, shortness of breath or dizziness. ? .. ? Erectile dysfunction: Patient seen by urologist whom prescribed generic Viagra which he reports worked well. ? . ? Lumbar spondylosis: Currently on meloxicam and baclofen the treatment of his chronic back pain ..? ? .. tobacco dependence: he does report smoking 2-3 cigarettes per day and understands he needs to completely quit smoking. He has found it difficult to quit and reports he would try to wean and completely quit on his own. ? .. ? History of alcohol abuse: Has been sober now 3 year from alcohol?. He continues on naltrexone. Now seeing a therapist and psychiatrist? in [facility]. Vaccine: UTD with tdap, decline PCV up-to-date with COVID vaccines Colorectal cancer screening: done 2020- Repeat 10 years [facility] Medical History Elevated cholesterol History of alcohol dependence Arthritis Back pain GERD (gastroesophageal reflux disease) HTN (hypertension) Surgical History H/O colonoscopy Hx of umbilical hernia repair Social History (Updated 01/12/24 @ 10:48 by Ousmane Iverson PA-C) Household Members: Family Housing: House Alcohol intake: former Year quit: 2019 Patient Tobacco Use Status: Current someday Tobacco user Tobacco use type: Cigarette Cigarettes Per Day: 4 Years Smoked: 20+ e-Cigarette/Vaping Use: Never Used Second Hand Smoke Exposure: No service: No Current occupational status: unemployed and disabled 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 Cognitive needs: No Hearing needs: No Vision needs: No Questionnaire Thrive Questionnaire Date Thrive assessed: 12/14/23 ALVARO-7 AMB Questionnaire ALVARO-7 Date ALVARO - 7 assessed: 12/14/23 Source: Developed by Drs. Sree Donahue, Annie Simons, Jonathan Myers and colleagues, with an educational benny from [employer]. Review of Systems Const Denies body aches, Denies chills, Denies excessive sweating, Denies fatigue, Denies fever(s) and Denies headache(s) Eyes Denies blurry vision ENT Denies dysphagia, Denies vertigo, Denies dizziness, Denies headache(s), Denies hearing loss and Denies tinnitus Card Denies chest pain, Denies chest pain with activity, Denies syncope, Denies irregular heart rhythm and Denies dyspnea Resp Denies chest congestion, Denies cough, Denies hemoptysis, Denies dyspnea and Denies wheezing GI Denies abdominal pain, Denies melena, Denies hematochezia, Denies coffee ground emesis, Denies dysphagia, Denies diarrhea, Denies nausea and Denies vomiting Denies difficulty urinating, Denies dysuria, Denies urinary frequency, Denies urinary hesitancy and Denies urinary urgency Musc Denies arthralgias, Denies limited range of motion, Denies muscle cramps and Denies muscle weakness Skin/Breast Denies rash and Denies skin ulcer Neuro Denies Abnormal speech present, Denies confusion, Denies vertigo, Denies dizziness, Denies syncope, Denies headache(s), Denies memory loss and Denies seizure-like activity Psych Denies anxiety, Denies confusion, Denies depression, Denies memory loss, Denies panic attacks and Denies paranoia Endo Denies excessive sweating, Denies fatigue, Denies flushing, Denies polydipsia and Denies polyuria Aller/Immun Denies wheezing Physical exam (Primary Care) Vital Signs: Last Vital Signs Pulse 88 01/12/24 10:26 BP 117/72 01/12/24 10:26 Pulse Ox 98 01/12/24 10:26 Oxygen Delivery Method Room Air 01/12/24 10:26 BMI result Body Mass Index 21.8 Tobacco/Smoking Status: Tobacco use Status Tobacco use date assessed 12/14/23 01/12/24 10:16 Patient Tobacco Use Status Current someday Tobacco 01/12/24 10:16 Tobacco use type Cigarette 01/12/24 10:16 e-Cigarette/Vaping Use Never Used 01/12/24 10:16 Are you ready to quit: No Tobacco cessation counseling provided: Yes Items discussed: Nicotine replacement Relapse Prevention: discussed the importance of a supportive environment, discussed negative mood or depression after quitting, weight gain after smoking is common and discussed dietary, exercise and/or lifestyle changes Number of minutes spent counselin CPT code: 81973 - 4-10 Minutes Thrive Assessment: Date of Thrive Assessment Date Thrive assessed 12/14/23 01/12/24 10:16 Const General: cooperative, comfortable, no acute distress, alert and awake; No confusion Orientation/consciousness: oriented to person, oriented to place, patient oriented x3 and No confusion HENMT Head: Yes normocephalic Ears: external ears normal and TM's normal bilaterally Face and sinus: No sinus tenderness Mouth: Normal oral and palatal mucosa present and tongue normal Teeth and gingiva: dentition normal and gingiva normal Throat: Yes posterior oropharynx normal, Yes tonsils normal and Yes uvula midline Eyes Conjunctivae: conjunctivae normal Sclerae: sclerae normal Pupils: Equal, round and reactive pupils present EOM: EOMs intact bilaterally Direct Ophthalmoscopy: No no photophobia Neck Neck: Yes no lymphadenopathy, No tender and Yes no JVD Thyroid: Thyroid normal Carotids: no bruits Chest Chest palpation & inspection: no tenderness Resp Effort & Inspection: normal respiratory effort, no audible wheezes, not labored and no stridor Auscultation: no crackles, no rales, no rhonchi and no wheezes Cardio Jugular venous distension: no JVD Rate: regular rate, not bradycardic and not tachycardic Rhythm: regular rhythm Bruits: no carotid bruits Peripheral pulses: Peripheral pulses 2+ throughout GI Inspection: Yes normal to inspection, No abdominal wall ecchymosis and No visible herniation Palpation (GI): Soft to palpation, nontender, no guarding, not rigid and No hepatosplenomegaly present Auscultation: normoactive bowel sounds General: Yes no CVA tenderness Back/Spine/Pelvis Back: no CVA tenderness and No back tenderness Cervical Spine: cervical ROM normal Thoracic/Lumbar Spine: thoracic and lumbar spine normal to inspection, straight leg raise negative bilaterally, No thoraco-lumbar ROM limited and No lumbar spinal tenderness Skin Lesions: no lesions Rashes: no rashes Wounds: no wounds Neuro General: oriented to person, oriented to place, patient oriented x3, CN's II-XI intact bilaterally and No confusion Cranial nerves: Yes Equal, round and reactive pupils present and Yes Normal accommodation reflex present Cognition (Neuro): normal cognition Speech: No Abnormal speech present Gait exam (Neuro): Normal gait present Motor exam (neuro): 5/5 motor strength present throughout Extrem Right upper extremity: full ROM; no cyanosis Left upper extremity: full ROM; no cyanosis Right lower extremity: no edema Left lower extremity: no edema Psych Appearance: grossly normal Mental Status: mental status grossly normal Affect: normal affect Attitude: cooperative Thought process: Normal thought process present Assessment and Plan Assessment & Plan (1) Annual physical exam: Code(s): Z00.00 - Encounter for general adult medical examination without abnormal findings (2) HTN (hypertension): Code(s): I10 - Essential (primary) hypertension Qualifiers: Hypertension type: essential hypertension Qualified Code(s): I10 - Essential (primary) hypertension Plan: Patient's blood pressure acceptable today in office. Will continue him on his current dose of amlodipine. Goal blood pressures to remain below 140/90 (3) HLD (hyperlipidemia): Code(s): E78.5 - Hyperlipidemia, unspecified Qualifiers: Hyperlipidemia type: mixed hyperlipidemia Qualified Code(s): E78.2 - Mixed hyperlipidemia Plan: Most recent lipid panel showing appropriate total cholesterol and LDL.. Continue on his current dose pravastatin. Will put in order for fasting labs to evaluate fasting lipid panel. Goal LDL to be below 130 (4) Alcohol dependence: Code(s): F10.20 - Alcohol dependence, uncomplicated Qualifiers: Substance use status: uncomplicated Qualified Code(s): F10.20 - Alcohol dependence, uncomplicated Plan: Was previously seen at [facility] [place] and reports graduating from the program. Does have history of alcohol dependency that has been remission over the last 3 years, he continues with daily use of naltrexone which has drastically reduced his cravings for alcohol. (5) Mandibular fracture: Code(s): S02.609A - Fracture of mandible, unspecified, initial encounter for closed fracture Qualifiers: Encounter type: subsequent encounter Fracture type: closed Mandible location: angle Laterality: unspecified laterality Fracture healing: with routine healing Qualified Code(s): S02.650D - Fracture of angle of mandible, unspecified side, subsequent encounter for fracture with routine healing Plan: Status post fall. Has resolved Doing much better and able to eat solids. (6) Tobacco dependence: Code(s): F17.200 - Nicotine dependence, unspecified, uncomplicated Plan: He does report smoking 5-6 cigarettes per day. He does understand he needs to quit smoking. Does have nicotine patches available to him. Orders: Orders Complete Blood Count no Diff Today K21.9 - Gastro-esophageal reflux disease without esophagitis Lipid Panel Today E78.2 - Mixed hyperlipidemia Comprehensive [place]. Panel Fast Today I10 - Essential (primary) hypertension Medications: Refilled meloxicam 15 mg PO DAILY 28 tabs 3RF Coding Level of Care Code Est Pt Prev Care >65y(59426) Diagnoses Annual physical exam Z00.00 Essential hypertension I10 Hypertension type: essential hypertension Mixed hyperlipidemia E78.2 Hyperlipidemia type: mixed hyperlipidemia Uncomplicated alcohol dependence F10.20 Substance use status: uncomplicated Closed fracture of angle of mandible with routine healing, unspecified laterality, subsequent encounter S02.650D Encounter type: subsequent encounter Fracture type: closed Mandible location: angle Laterality: unspecified laterality Fracture healing: with routine healing Tobacco dependence F17.200 Additional Codes Vital Signs *Quality* - CPT code: 26284 - 4-10 Minutes ([id number])
[2024-01-12 10:26] VITALS: BP 117/72; PULSE 88; O2SAT 98; BMI 21.8
== END 2024-01-12 10:56 | disposition home or self-care (01) ==
PROVIDERS: PCP Physician Assistant; Visit Provider Physician Assistant
DX: Z00.00 Encounter for general adult medical examination without abnormal findings (principal); I10 Essential (primary) hypertension; E78.2 Mixed hyperlipidemia; F10.20 Alcohol dependence, uncomplicated; S02.6 Fracture of mandible; F17.200 Nicotine dependence, unspecified, uncomplicated
CPT/HCPCS: 99397; 99406

== ENCOUNTER 2024-02-24 07:42 | Outpatient (REF) | payer OTHER, SELFPAY ==
[2024-02-24 09:09] LABS: Hematocrit 44.4 % (42.0-52.0); Hemoglobin 15.4 g/dl (14.0-18.0); Mean Corpuscular HGB Conc 34.7 g/dl (31.0-36.0); Mean Corpuscular Hemoglobin 27.2 pg (27.0-33.0); Mean Corpuscular Volume 78.4 fL (80.0-98.0); Platelet Count 318 X10*3/uL (160-400); Red Blood Count 5.66 X10*6/uL (4.60-5.80); Red Cell Distribution Width 13.9 % (11.0-16.0); White Blood Count 4.8 X10*3/uL (4.8-10.8)
[2024-02-24 09:55] LABS: Alanine Aminotransferase 18 U/L (0-40); Albumin Level 4.3 g/dL (3.5-5.0); Alkaline Phosphatase 72 U/L (39-117); Anion Gap 13 (12-20); Aspartate Amino Transferase 22 U/L (5-37); Bilirubin Total 0.6 mg/dL (0.0-1.0); Blood Urea Nitrogen 9 mg/dL (9-16); Calcium 9.7 mg/dL (8.4-10.2); Carbon Dioxide 26 mmol/L (22-29); Chloride 104 mmol/L (96-108); Cholesterol 180 mg/dL (<200); Estimated Glomerular Filt Rate > 60; Glucose Fasting 94 mg/dL (60-99); HDL Cholesterol 71 mg/dL (>40); LDL Cholesterol Calculated 97 mg/dL (<100); Sodium 139 mmol/L (135-145); Total Protein 7.4 g/dL (6.5-8.0); Triglycerides 60 mg/dL (<150)
== END 2024-02-24 07:43 | disposition home or self-care (01) ==
LOC: HO.LAB 07:42
PROVIDERS: PCP Physician Assistant; Visit Provider Physician Assistant
DX: K21.9 Gastro-esophageal reflux disease without esophagitis (principal); N52.8 Other male erectile dysfunction; I10 Essential (primary) hypertension; E78.2 Mixed hyperlipidemia
CPT/HCPCS: 36415; 80053; 80061; 85027; 99212

== ENCOUNTER 2024-02-24 08:50 | Outpatient (AMB) | payer OTHER, SELFPAY ==
--- NOTE | 2024-02-24 09:08 | A.OFFVIS_ITS ---
Intake Visit Reasons: follow-up ED Intake Note: Patient is Present for Follow Up Urology Medication: Sildenafil Antibiotic Allergies:None Blood Thinners:None Allergies No Known Allergies Allergy (Verified 01/12/24 10:40) Medication List - Last Reconciled 02/24/24 by Jhon Jorgensen MD acetaminophen 1,000 mg PO Q6H PRN amlodipine 10 mg PO DAILY 90 days baclofen 20 mg PO TID cane As directed gabapentin 600 mg PO BID 90 days hydrocortisone 2.5% (Proctozone-HC) 1 appl [place] BID PRN melatonin 5 mg PO BEDTIME meloxicam 15 mg PO DAILY methylcellulose (laxative) (Citrucel) 500 mg PO BID naltrexone 50 mg PO DAILY 90 days nicotine (polacrilex) 4 mg PO Q4H PRN 30 days omeprazole 40 mg PO DAILY oxycodone 5 mg PO Q6H PRN pravastatin 20 mg PO DAILY 90 days sertraline 25 mg PO DAILY 90 days sildenafil 100 mg PO DAILY PRN 30 days tadalafil 10 mg PO DAILY 90 days HPI Comments Details: Alexandro is a pleasant male. He is seen for following urologic conditions - erectile dysfunction Yearly follow-up Had been on daily 10 mg Halima Would like to restart daily tadalafil PSA 08/13 0.5 Erectile dysfunction: Good response to oral medications He presents today for further evaluation of erectile dysfunction. Symptoms have been present for/since Ongoing. Current treatment includes daily tadalafil 10 mg. At this time he experiences erections are partial and adequate for vaginal penetration, that undergo rapid detumesence after penetration, RICARDO 8-11 Moderate ED. Nocturnal erections do occur. Currently they are in a stable relationship. Associated problems hypertension No diabetes No dyslipidemia No depression No stress No decreased libido No pelvic surgery No Overall he is satisfied with the current management [facility] Medical History Elevated cholesterol History of alcohol dependence Arthritis Back pain GERD (gastroesophageal reflux disease) HTN (hypertension) Surgical History H/O colonoscopy Hx of umbilical hernia repair Social History (Updated 01/12/24 @ 10:48 by Ousmane Iverson PA-C) Household Members: Family Housing: House Alcohol intake: former Year quit: 2019 Patient Tobacco Use Status: Current someday Tobacco user Tobacco use type: Cigarette Cigarettes Per Day: 4 Years Smoked: 20+ e-Cigarette/Vaping Use: Never Used Second Hand Smoke Exposure: No service: No Current occupational status: unemployed and disabled 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 Cognitive needs: No Hearing needs: No Vision needs: No Review of Systems Const Denies chills and Denies fever(s) Card Reports no additional complaints and Denies syncope Resp Denies cough GI Denies abdominal pain and Denies heartburn Reports as per HPI and Denies change in libido Neuro Denies syncope Psych Denies change in libido Endo Denies change in libido Physical Exam Const General: cooperative, healthy appearing, comfortable and no acute distress Orientation/consciousness: patient oriented x3 HEENT Face and sinus: Yes normal facial exam Mouth: moist mucous membranes Neck Neck: Yes normal visual inspection, Yes full ROM and Yes trachea midline Chest Chest palpation & inspection: normal inspection of the chest Resp Effort & Inspection: normal respiratory effort, able to speak in complete s entences and no respiratory distress GI Inspection: Yes normal to inspection Back/Spine/Pelvis Cervical Spine: normal cervical lordosis Thoracic/Lumbar Spine: thoracic and lumbar spine normal to inspection Skin General skin exam: no rashes or lesions noted Neuro General: patient oriented x3, gait normal, tone normal and moves all extremities Extrem General: Yes normal to inspection and Yes capillary refill normal Assessment & Plan Assessment & Plan (1) Erectile dysfunction: Comment: Good response to 100 mg sildenafil Code(s): N52.9 - Male erectile dysfunction, unspecified Category: Medical Qualifiers: Erectile dysfunction type: due to other cause Qualified Code(s): N52.8 - Other male erectile dysfunction Plan Six-month follow-up Medications: New tadalafil 10 mg PO DAILY 90 days 90 tabs 1RF sexual activity N52.8 - Other male erectile dysfunction, N52.9 - Male erectile dysfunction, unspecified Patient Instructions: Imaging studies, laboratory and physical exam results were discussed and reviewed in detail. No major barriers to patient understanding were identified. An opportunity to ask questions regarding the treatment plan was provided. All questions were answered. The patient expressed understanding and agreement with the above treatment plan. The patient is aware they should contact our office by phone for worsening of their current condition or the appearance of new urologic symptoms. Compliance is encouraged with any medications and followup testing that is ordered. It is a privilege to participate in the urologic care of your patient. If you have any questions or concerns regarding treatment for the above conditions, or other urologic issues, please do not hesitate to contact me. The office telephone contact is [phone]. This note is constructed using voice recognition software. While every effort has been made to ensure accuracy etch operator semiconductor wafers errors may have been included. Yours sincerely, Dr Jhon Jorgensen MD, [facility] - Urology Providers of Expert, Compassionate Care for the Genitourinary System Coding Level of Care Code Est Pt Level 4 (12026) Diagnoses Other male erectile dysfunction N52.8 Erectile dysfunction type: due to other cause
== END 2024-02-24 09:16 | disposition home or self-care (01) ==
PROVIDERS: PCP Physician Assistant; Visit Provider Urology
DX: N52.8 Other male erectile dysfunction (principal)
CPT/HCPCS: 99213